=== PATIENT | male | born 1955 | race Caucasian/White ===

== ENCOUNTER → 2017-12-30 09:17 | Outpatient (CLI) | payer OTHER, SELFPAY ==
[2017-12-30 10:36] LABS: Add Manual Diff / Slide Review NO; Basophils Percent Auto 0.5 % (0-2); Eosinophils Percent Auto 2.2 % (2-4); Hematocrit 42.9 % (41-53); Hemoglobin 14.6 g/dL (13.5-17.5); Lymphocytes Percent Auto 23.8 % (25-40); Mean Corpuscular HGB Conc 34.1 % (30-36); Mean Corpuscular Hemoglobin 28.8 PG (26-34); Mean Corpuscular Volume 84.4 fL (80-100); Monocytes Percent Auto 6.8 % (3-14); Neutrophils Absolute Auto 5700 /uL (3000-5900); Neutrophils Percent Auto 66.7 % (50-75); Platelet Count 230 X10^3/uL (150-400); Red Blood Cell Count 5.08 X10^6/uL (4.5-5.9); Red Cell Distribution Width 15.3 % (11.6-14.8); White Blood Cell Count 8.6 X10^3/uL (4.5-11.0)
[2017-12-30 11:32] LABS: Creatinine Urine Random 90.5 mg/dL
[2017-12-30 11:41] LABS: Alanine Aminotransferase 29 IU/L (21-72); Albumin 3.9 g/dL (3.5-5.0); Albumin Globulin Ratio 1.4 (1.0-2.8); Alkaline Phosphatase 78 U/L (38-126); Aspartate Aminotransferase 20 IU/L (17-59); Bilirubin Total 0.4 mg/dL (0.2-1.3); Blood Urea Nitrogen 14 mg/dL (9-20); Calcium 9.2 mg/dL (8.4-10.2); Carbon Dioxide 31 mmol/L (22-32); Chloride 102 mmol/L (98-107); Estimated Glomerular Filt Rate > 60.0 mL/min (>60); Globulin 2.7 g/dL (1.7-4.1); Glucose 140 mg/dL (80-110); HEMOLYSIS < 15 (0-50); Potassium 4.1 mmol/L (3.4-5.1); Sodium 140 mmol/L (137-145); Total Protein 6.6 g/dL (6.3-8.2)
[2017-12-30 11:46] LABS: Hemoglobin A1C% w Est Avg Glu 7.7 % (4.0-6.0)
[2017-12-30 11:52] LABS: Free T4, Direct Thyroxine 1.56 ng/dL (0.78-2.19)
[2017-12-30 11:54] LABS: Microalbumi Creatinin Ratio Ur 296.1 ug/mg CR (<30); Microalbumin Urine Random 26.8 mg/dL (0-1.6)
[2017-12-30 12:06] LABS: Thyroid Stimulating Hormone 0.09 uIU/mL (0.47-4.68)
== END ==
PROVIDERS: PCP Family Medicine; Visit Provider Family Medicine
DX: E03.9 Hypothyroidism, unspecified (principal); E11.69 Type 2 diabetes mellitus with other specified complication; E66.9 Obesity, unspecified; I10 Essential (primary) hypertension
CPT/HCPCS: 36415; 80053; 82043; 82570; 83036; 84439; 84443; 85025

== ENCOUNTER → 2018-01-20 15:14 | Outpatient (CLI) | payer OTHER, SELFPAY ==
[2018-01-20 15:54] LABS: Cholesterol 143 mg/dL (140-199); HDL Cholesterol 36 mg/dL (40-60); Triglycerides 416 mg/dL (35-150)
== END ==
PROVIDERS: PCP Family Medicine; Visit Provider Internal Medicine
DX: E11.69 Type 2 diabetes mellitus with other specified complication (principal); E66.9 Obesity, unspecified; I10 Essential (primary) hypertension
CPT/HCPCS: 36415; 80061

== ENCOUNTER → 2018-02-23 09:50 | Outpatient (CLI) | payer OTHER, SELFPAY ==
[2018-02-23 11:43] LABS: BUN Creatinine Ratio 17.5 (6-22); Blood Urea Nitrogen 14 mg/dL (9-20); Calcium 9.3 mg/dL (8.4-10.2); Carbon Dioxide 29 mmol/L (22-32); Chloride 101 mmol/L (98-107); Cholesterol 157 mg/dL (140-199); Estimated Glomerular Filt Rate > 60.0 mL/min (>60); Glucose 154 mg/dL (80-110); HDL Cholesterol 37 mg/dL (40-60); HEMOLYSIS < 15 (0-50); LDL Cholesterol Calculated 63 mg/dL (<100); Potassium 4.6 mmol/L (3.4-5.1); Sodium 142 mmol/L (137-145); Triglycerides 286 mg/dL (35-150)
== END ==
PROVIDERS: PCP Internal Medicine; Visit Provider Internal Medicine
DX: I10 Essential (primary) hypertension (principal); E66.01 Morbid (severe) obesity due to excess calories; E11.69 Type 2 diabetes mellitus with other specified complication; E66.9 Obesity, unspecified; E78.1 Pure hyperglyceridemia
CPT/HCPCS: 36415; 80048; 80061

== ENCOUNTER 2018-03-11 12:00 | Emergency (ER) | payer OTHER, SELFPAY ==
[2018-03-11 12:05] VITALS: BP 167/60; PULSE 76; RESP 20; TEMP 36.8; O2SAT 100; BMI 48.8
--- NOTE | 2018-03-11 12:58 | ED.BACK ---
HPI - Back Pain/Injury <APARNA Dennis - Last Filed: 03/11/18 22:05> General Chief Complaint: Back Pain/Injury Stated Complaint: Back Pain Time Seen by Provider: 03/11/18 13:07 Source: patient and EMS Mode of arrival: EMS Limitations: no limitations History of Present Illness HPI Narrative: 62-year-old male with history of type 2 diabetes and is a former smoker here for complaint of having lower back pain over the past several days. He was seen by his primary care provider 2 days ago and was placed on Tylenol and cyclobenzaprine. He states that the Tylenol in the cyclobenzaprine is not helping. He reports worsening pain in today with movement. He is able to ambulate although it is painful. He denies any loss of bladder or bowel control. He denies any trauma to the lower back. He states that the pain started when he was bending over to work on a toilet. No other concerns or complaints. MD Complaint: back pain Related Data Home Medications Medication Instructions Recorded Confirmed aspirin 81 mg PO QDAY #0 06/28/12 03/09/18 vit C,D-Qx-uofmr-lutein-zeaxan 1 cap PO QDAY #0 12/10/12 03/09/18 [Ocuvite Lutein and Zeaxanthin] lisinopril 60 mg PO Q DAY 03/11/18 Previous Rx's Medication Instructions Recorded levothyroxine 150 mcg PO QAM #90 tab 06/23/17 Syringes: 1cc Insulin Syringes 0 syr #100 ea 08/26/17 with [place] amlodipine 10 mg PO QDAY #90 tab 09/10/17 blood sugar diagnostic strips #100 each 11/17/17 carvedilol 25 mg tablet 25 mg PO BID #180 tab 01/12/18 chlorthalidone 25 mg tablet 25 mg PO DAILY #90 tab 01/12/18 levothyroxine 75 mcg tablet 75 mcg PO DAILY #60 tab 01/12/18 metformin 500 mg tablet 1,000 mg PO BIDCC #360 tab 01/12/18 insulin U-100 regular human 100 0 unit SUBCUT BID #50 ml 01/26/18 unit/mL injection solution insulin glargine (U-100) 100 0 unit SUBCUT BID #60 ml 01/26/18 unit/mL subcutaneous solution rosuvastatin [Crestor] 40 mg PO QDAY #30 tab 01/26/18 spironolactone 50 mg tablet 50 mg PO DAILY #90 tab 02/23/18 cyclobenzaprine 10 mg tablet 10 mg PO TID #30 tab 03/09/18 hydrocodone-acetaminophen 1 tab PO Q4-6H PRN #10 tab 03/11/18 prednisone 40 mg PO DAILY #8 tab 03/11/18 Allergies Allergy/AdvReac Type Severity Reaction Status Date / Time No Known Drug Allergies Allergy Verified 03/09/18 16:00 Review of Systems <APARNA Dennis - Last Filed: 03/11/18 22:05> Constitutional Denies chills, Denies fever(s), Denies lethargy and Denies weakness Eyes Denies change in vision, Denies eye discharge, Denies irritation and Denies loss of vision ENT Ears, Nose, Mouth, and Throat: Denies change in voice, Denies neck pain and Denies sore throat Cardiovascular Denies chest pain, Denies irregular heart rhythm, Denies lightheadedness, Denies palpitations and Denies orthopnea Gastrointestinal Gastrointestinal: Denies abdominal pain, Denies change in bowel habits, Denies diarrhea, Denies nausea and Denies vomiting Genitourinary Denies hematuria, Denies flank pain, Denies urinary incontinence and Denies urinary urgency Musculoskeletal Denies neck pain Comments: Lower back pain Integumentary/Breasts Denies pruritus, Denies erythema, Denies rash and Denies wounds Neurologic Denies confusion, Denies loss of vision and Denies weakness Psychiatric Denies anxiety, Denies confusion, Denies depression, Denies homicidal ideation and Denies suicidal ideation Endocrine Denies palpitations Exam <APARNA Dennis - Last Filed: 03/11/18 22:05> Initial Vital Signs Initial Vital Signs: Vital Signs Temperature 98.2 F 03/11/18 12:05 Pulse Rate 76 03/11/18 12:05 Respiratory Rate 20 03/11/18 12:05 Blood Pressure 167/60 H 03/11/18 12:05 Pulse Oximetry 100 03/11/18 12:05 Const General: cooperative and well developed Nutritional Appearance: well nourished Orientation: alert, awake, oriented x3 and not confused HENMT Mouth: oral mucosae normal and moist mucous membranes Eyes Conjunctivae: conjunctivae normal Sclera: sclerae normal Pupils: PERRL EOM: EOM intact bilaterally Resp Effort & Inspection: normal respiratory effort, able to speak in complete sentences, no respiratory distress and no use of accessory muscles Auscultation: clear to auscultation bilaterally, no rales, no rhonchi and no wheezes Cardio Rate: regular rate Rhythm: regular rhythm Heart Sounds: no click, no gallops, no murmurs and no rubs Back/Spine/Pelvis Other: Tenderness on palpation to the right lumbar paraspinals with muscle spasm. No deformities. Distal sensation is intact. Distal range of motion is intact. Skin General: no rashes or lesions noted, No jaundice and No petechiae Neuro General: alert, oriented x3, gait normal and no focal motor deficits Speech: speech normal <Ivy Watt DO - Last Filed: 03/14/18 08:10> Initial Vital Signs Initial Vital Signs: Vital Signs Temperature 98.2 F 03/11/18 12:05 Pulse Rate 76 03/11/18 12:05 Respiratory Rate 20 03/11/18 12:05 Blood Pressure 167/60 H 03/11/18 12:05 Pulse Oximetry 100 03/11/18 12:05 Course <APARNA Dennis - Last Filed: 03/11/18 22:05> Orders Ordered: Discontinued Medications Hydrocodone Bitart/Acetaminophen ([place] 5/325) 2 tab PO NOW ONE Stop: 03/11/18 13:07 Last Admin: 03/11/18 13:32 Dose: 2 tab Diazepam (Valium) 5 mg PO NOW ONE Stop: 03/11/18 13:07 Last Admin: 03/11/18 13:33 Dose: 5 mg Vital Signs - 8 hr 03/11/18 14:10 Pulse Rate 65 Respiratory Rate 16 Blood Pressure 138/50 L Pulse Oximetry 96 <Ivy Watt DO - Last Filed: 03/14/18 08:10> Orders Ordered: Discontinued Medications Hydrocodone Bitart/Acetaminophen ([place] 5/325) 2 tab PO NOW ONE Stop: 03/11/18 13:07 Last Admin: 03/11/18 13:32 Dose: 2 tab Diazepam (Valium) 5 mg PO NOW ONE Stop: 03/11/18 13:07 Last Admin: 03/11/18 13:33 Dose: 5 mg Vital Signs - 8 hr 03/11/18 14:10 Pulse Rate 65 Respiratory Rate 16 Blood Pressure 138/50 L Pulse Oximetry 96 [facility] - Back Pain/Injury <Deondre RolandAPARNA tillman - Last Filed: 03/11/18 22:05> [facility] Narrative Medical decision making narrative: Signs and symptoms presents as lumbar strain into the right paraspinals. Cyclobenzaprine and Tylenol is not helping his symptoms. Small amount of [place] is prescribed for pain. Short course of prednisone is given for anti-inflammatory effects. Patient instructed not to use the [place] and conjunction with the cyclobenzaprine. Follow up with primary care provider next couple days for re-evaluation. For any worsening symptoms return to the emergency room. Gentle range of motion at to painful areas to keep muscles loose. Discharge Plan Departure Patient Disposition: Home Clinical Impression: Low back pain Discharge Date/Time: 03/11/18 14:00 Interventions: ED Discharge Assessment Last Done: 03/11/18 14:10 Instructions: DI for Low Back Pain Activity Restrictions/Additional Instructions: Sinus symptoms presents as a lower back strain with muscle spasm. Use [id number] Tylenol or Motrin as needed for the discomfort continued use cyclobenzaprine for the muscle spasm. Small amount of [place] is prescribed for breakthrough pain use as directed do not use in conjunction with the muscle relaxer. Short course of prednisone as prescribed for inflammation use as directed. Follow up with her primary care provider in the next couple days for re-evaluation. Gentle range of motion to painful areas to keep muscles loose. For any worsening symptoms return to the emergency room. Prescriptions: New hydrocodone-acetaminophen 5-325 mg tablet 1 tab PO Q4-6H PRN (Reason: pain) Qty: 10 RF: 0 prednisone 20 mg tablet 40 mg PO DAILY Qty: 8 RF: 0 No Action aspirin 81 MG tablet,delayed release (DR/EC) 81 mg PO QDAY Qty: 0 RF: 0 vit C,D-Hx-iuxgc-lutein-zeaxan [Ocuvite Lutein and Zeaxanthin] 1 EACH capsule 1 cap PO QDAY Qty: 0 RF: 0 levothyroxine 150 MCG tablet 150 mcg PO QAM Qty: 90 RF: 3 Syringes: 1cc Insulin Syringes with [place] Qty: 100 RF: 11 amlodipine 10 MG tablet 10 mg PO QDAY Qty: 90 RF: 3 blood sugar diagnostic strip .ROUTE .MEDSUPPLY Qty: 100 RF: 11 spironolactone 50 mg tablet 50 mg PO DAILY Qty: 90 RF: 1 cyclobenzaprine 10 mg tablet 10 mg PO TID Qty: 30 RF: 0 chlorthalidone 25 mg tablet 25 mg PO DAILY Qty: 90 RF: 0 carvedilol 25 mg tablet 25 mg PO BID Qty: 180 RF: 0 levothyroxine 75 mcg tablet 75 mcg PO DAILY Qty: 60 RF: 0 metformin [Glucophage] 500 mg tablet 1,000 mg PO BIDCC Qty: 360 RF: 3 insulin glargine [Lantus U-100 Insulin] 100 unit/mL solution SUBCUT BID Qty: 60 RF: 11 insulin regular human [Humulin R Regular U-100 Insuln] 100 unit/mL solution SUBCUT BID Qty: 50 RF: 12 rosuvastatin [Crestor] 40 mg tablet 40 mg PO QDAY Qty: 30 RF: 11 lisinopril 40 MG tablet 60 mg PO Q DAY RF: 0 Referrals: Hamzah Jenkins MD [Primary Care Provider] - <Ivy aWtt DO - Last Filed: 03/14/18 08:10> Cosign ED Attending Cosignature Attestation: I was immediately available in the department for consultation. This documentation has been reviewed and I agree with assessment and plan. Supervised by Ivy Watt DO
--- NOTE | 2018-03-11 13:13 | ED_ITS ---
HPI - Back Pain/Injury <APARNA Dennis - Last Filed: 03/11/18 22:05> General Chief Complaint: Back Pain/Injury Stated Complaint: Back Pain Time Seen by Provider: 03/11/18 13:07 Source: patient and EMS Mode of arrival: EMS Limitations: no limitations History of Present Illness HPI Narrative: 62-year-old male with history of type 2 diabetes and is a former smoker here for complaint of having lower back pain over the past several days. He was seen by his primary care provider 2 days ago and was placed on Tylenol and cyclobenzaprine. He states that the Tylenol in the cyclobenzaprine is not helping. He reports worsening pain in today with movement. He is able to ambulate although it is painful. He denies any loss of bladder or bowel control. He denies any trauma to the lower back. He states that the pain started when he was bending over to work on a toilet. No other concerns or complaints. MD Complaint: back pain Related Data Home Medications Medication Instructions Recorded Confirmed aspirin 81 mg PO QDAY #0 06/28/12 03/09/18 vit C,V-Lc-klvgo-lutein-zeaxan 1 cap PO QDAY #0 12/10/12 03/09/18 [Ocuvite Lutein and Zeaxanthin] lisinopril 60 mg PO Q DAY 03/11/18 Previous Rx's Medication Instructions Recorded levothyroxine 150 mcg PO QAM #90 tab 06/23/17 Syringes: 1cc Insulin Syringes 0 syr #100 ea 08/26/17 with [place] amlodipine 10 mg PO QDAY #90 tab 09/10/17 blood sugar diagnostic strips #100 each 11/17/17 carvedilol 25 mg tablet 25 mg PO BID #180 tab 01/12/18 chlorthalidone 25 mg tablet 25 mg PO DAILY #90 tab 01/12/18 levothyroxine 75 mcg tablet 75 mcg PO DAILY #60 tab 01/12/18 metformin 500 mg tablet 1,000 mg PO BIDCC #360 tab 01/12/18 insulin U-100 regular human 100 0 unit SUBCUT BID #50 ml 01/26/18 unit/mL injection solution insulin glargine (U-100) 100 0 unit SUBCUT BID #60 ml 01/26/18 unit/mL subcutaneous solution rosuvastatin [Crestor] 40 mg PO QDAY #30 tab 01/26/18 spironolactone 50 mg tablet 50 mg PO DAILY #90 tab 02/23/18 cyclobenzaprine 10 mg tablet 10 mg PO TID #30 tab 03/09/18 hydrocodone-acetaminophen 1 tab PO Q4-6H PRN #10 tab 03/11/18 prednisone 40 mg PO DAILY #8 tab 03/11/18 Allergies Allergy/AdvReac Type Severity Reaction Status Date / Time No Known Drug Allergies Allergy Verified 03/09/18 16:00 Review of Systems <APARNA Dennis - Last Filed: 03/11/18 22:05> Constitutional Denies chills, Denies fever(s), Denies lethargy and Denies weakness Eyes Denies change in vision, Denies eye discharge, Denies irritation and Denies loss of vision ENT Ears, Nose, Mouth, and Throat: Denies change in voice, Denies neck pain and Denies sore throat Cardiovascular Denies chest pain, Denies irregular heart rhythm, Denies lightheadedness, Denies palpitations and Denies orthopnea Gastrointestinal Gastrointestinal: Denies abdominal pain, Denies change in bowel habits, Denies diarrhea, Denies nausea and Denies vomiting Genitourinary Denies hematuria, Denies flank pain, Denies urinary incontinence and Denies urinary urgency Musculoskeletal Denies neck pain Comments: Lower back pain Integumentary/Breasts Denies pruritus, Denies erythema, Denies rash and Denies wounds Neurologic Denies confusion, Denies loss of vision and Denies weakness Psychiatric Denies anxiety, Denies confusion, Denies depression, Denies homicidal ideation and Denies suicidal ideation Endocrine Denies palpitations Exam <APARNA Dennis - Last Filed: 03/11/18 22:05> Initial Vital Signs Initial Vital Signs: Vital Signs Temperature 98.2 F 03/11/18 12:05 Pulse Rate 76 03/11/18 12:05 Respiratory Rate 20 03/11/18 12:05 Blood Pressure 167/60 H 03/11/18 12:05 Pulse Oximetry 100 03/11/18 12:05 Const General: cooperative and well developed Nutritional Appearance: well nourished Orientation: alert, awake, oriented x3 and not confused HENMT Mouth: oral mucosae normal and moist mucous membranes Eyes Conjunctivae: conjunctivae normal Sclera: sclerae normal Pupils: PERRL EOM: EOM intact bilaterally Resp Effort & Inspection: normal respiratory effort, able to speak in complete sentences, no respiratory distress and no use of accessory muscles Auscultation: clear to auscultation bilaterally, no rales, no rhonchi and no wheezes Cardio Rate: regular rate Rhythm: regular rhythm Heart Sounds: no click, no gallops, no murmurs and no rubs Back/Spine/Pelvis Other: Tenderness on palpation to the right lumbar paraspinals with muscle spasm. No deformities. Distal sensation is intact. Distal range of motion is intact. Skin General: no rashes or lesions noted, No jaundice and No petechiae Neuro General: alert, oriented x3, gait normal and no focal motor deficits Speech: speech normal <Ivy Watt DO - Last Filed: 03/14/18 08:10> Initial Vital Signs Initial Vital Signs: Vital Signs Temperature 98.2 F 03/11/18 12:05 Pulse Rate 76 03/11/18 12:05 Respiratory Rate 20 03/11/18 12:05 Blood Pressure 167/60 H 03/11/18 12:05 Pulse Oximetry 100 03/11/18 12:05 Course <APARNA Dennis - Last Filed: 03/11/18 22:05> Orders Ordered: Discontinued Medications Hydrocodone Bitart/Acetaminophen ([place] 5/325) 2 tab PO NOW ONE Stop: 03/11/18 13:07 Last Admin: 03/11/18 13:32 Dose: 2 tab Diazepam (Valium) 5 mg PO NOW ONE Stop: 03/11/18 13:07 Last Admin: 03/11/18 13:33 Dose: 5 mg Vital Signs - 8 hr 03/11/18 14:10 Pulse Rate 65 Respiratory Rate 16 Blood Pressure 138/50 L Pulse Oximetry 96 <Ivy Watt DO - Last Filed: 03/14/18 08:10> Orders Ordered: Discontinued Medications Hydrocodone Bitart/Acetaminophen ([place] 5/325) 2 tab PO NOW ONE Stop: 03/11/18 13:07 Last Admin: 03/11/18 13:32 Dose: 2 tab Diazepam (Valium) 5 mg PO NOW ONE Stop: 03/11/18 13:07 Last Admin: 03/11/18 13:33 Dose: 5 mg Vital Signs - 8 hr 03/11/18 14:10 Pulse Rate 65 Respiratory Rate 16 Blood Pressure 138/50 L Pulse Oximetry 96 [facility] - Back Pain/Injury <Deondre RolandAPARNA tillman - Last Filed: 03/11/18 22:05> [facility] Narrative Medical decision making narrative: Signs and symptoms presents as lumbar strain into the right paraspinals. Cyclobenzaprine and Tylenol is not helping his symptoms. Small amount of [place] is prescribed for pain. Short course of prednisone is given for anti-inflammatory effects. Patient instructed not to use the [place] and conjunction with the cyclobenzaprine. Follow up with primary care provider next couple days for re-evaluation. For any worsening symptoms return to the emergency room. Gentle range of motion at to painful areas to keep muscles loose. Discharge Plan Departure Patient Disposition: Home Clinical Impression: Low back pain Discharge Date/Time: 03/11/18 14:00 Interventions: ED Discharge Assessment Last Done: 03/11/18 14:10 Instructions: DI for Low Back Pain Activity Restrictions/Additional Instructions: Sinus symptoms presents as a lower back strain with muscle spasm. Use over-the- counter Tylenol or Motrin as needed for the discomfort continued use cyclobenzaprine for the muscle spasm. Small amount of [place] is prescribed for breakthrough pain use as directed do not use in conjunction with the muscle relaxer. Short course of prednisone as prescribed for inflammation use as directed. Follow up with her primary care provider in the next couple days for re-evaluation. Gentle range of motion to painful areas to keep muscles loose. For any worsening symptoms return to the emergency room. Prescriptions: New hydrocodone-acetaminophen 5-325 mg tablet 1 tab PO Q4-6H PRN (Reason: pain) Qty: 10 RF: 0 prednisone 20 mg tablet 40 mg PO DAILY Qty: 8 RF: 0 No Action aspirin 81 MG tablet,delayed release (DR/EC) 81 mg PO QDAY Qty: 0 RF: 0 vit C,J-Nc-szxpr-lutein-zeaxan [Ocuvite Lutein and Zeaxanthin] 1 EACH capsule 1 cap PO QDAY Qty: 0 RF: 0 levothyroxine 150 MCG tablet 150 mcg PO QAM Qty: 90 RF: 3 Syringes: 1cc Insulin Syringes with [place] Qty: 100 RF: 11 amlodipine 10 MG tablet 10 mg PO QDAY Qty: 90 RF: 3 blood sugar diagnostic strip .ROUTE .MEDSUPPLY Qty: 100 RF: 11 spironolactone 50 mg tablet 50 mg PO DAILY Qty: 90 RF: 1 cyclobenzaprine 10 mg tablet 10 mg PO TID Qty: 30 RF: 0 chlorthalidone 25 mg tablet 25 mg PO DAILY Qty: 90 RF: 0 carvedilol 25 mg tablet 25 mg PO BID Qty: 180 RF: 0 levothyroxine 75 mcg tablet 75 mcg PO DAILY Qty: 60 RF: 0 metformin [Glucophage] 500 mg tablet 1,000 mg PO BIDCC Qty: 360 RF: 3 insulin glargine [Lantus U-100 Insulin] 100 unit/mL solution SUBCUT BID Qty: 60 RF: 11 insulin regular human [Humulin R Regular U-100 Insuln] 100 unit/mL solution SUBCUT BID Qty: 50 RF: 12 rosuvastatin [Crestor] 40 mg tablet 40 mg PO QDAY Qty: 30 RF: 11 lisinopril 40 MG tablet 60 mg PO Q DAY RF: 0 Referrals: Hamzah Jenkins MD [Primary Care Provider] - <Ivy Watt DO - Last Filed: 03/14/18 08:10> Cosign ED Attending Cosignature Attestation: I was immediately available in the department for consultation. This documentation has been reviewed and I agree with assessment and plan. Supervised by Ivy Watt DO
[2018-03-11] MEDS: HYDROCODONE/ACET 5/325 TABLET 2 TAB PO (13:32)
[2018-03-11] MEDS: diazePAM 5 MG TABLET PO (13:33)
[2018-03-11 14:10] VITALS: BP 138/50; PULSE 65; RESP 16; O2SAT 96
== END 2018-03-11 14:00 | disposition home or self-care (01) ==
PROVIDERS: Emergency Provider Nurse Practitioner Family; PCP Internal Medicine
DX: M54.5 Low back pain (principal)
CPT/HCPCS: 99283

== ENCOUNTER → 2018-03-30 09:15 | Outpatient (CLI) | payer OTHER, SELFPAY ==
[2018-03-30 11:31] LABS: Thyroid Stimulating Hormone 0.74 uIU/mL (0.47-4.68)
[2018-03-30 19:51] LABS: Free T3, Triiodothyronine Free 2.83 pg/mL (2.77-5.27); Free T4, Direct Thyroxine 1.32 ng/dL (0.78-2.19)
== END ==
PROVIDERS: Visit Provider Family Medicine
DX: E03.9 Hypothyroidism, unspecified (principal)
CPT/HCPCS: 36415; 84439; 84443; 84481

== ENCOUNTER → 2018-06-03 08:20 | Outpatient (CLI) | payer OTHER, SELFPAY ==
[2018-06-03 09:02] LABS: Blood Urea Nitrogen 23 mg/dL (9-20); Calcium 9.8 mg/dL (8.4-10.2); Carbon Dioxide 28 mmol/L (22-32); Chloride 101 mmol/L (98-107); Estimated Glomerular Filt Rate > 60.0 mL/min (>60); Glucose 135 mg/dL (80-110); HEMOLYSIS < 15 (0-50); Potassium 4.7 mmol/L (3.4-5.1); Sodium 144 mmol/L (137-145)
[2018-06-03 09:03] LABS: Hemoglobin A1C% w Est Avg Glu 6.9 % (4.0-6.0)
[2018-06-03 09:29] LABS: Prostate Specific Antigen Scrn 1.65 ng/mL (0.1-4.0)
== END ==
PROVIDERS: PCP Internal Medicine; Visit Provider Internal Medicine
DX: E11.65 Type 2 diabetes mellitus with hyperglycemia (principal); Z12.5 Encounter for screening for malignant neoplasm of prostate
CPT/HCPCS: 36415; 80048; 83036; G0103

== ENCOUNTER → 2018-08-05 16:04 | Outpatient (CLI) | payer OTHER, SELFPAY ==
--- NOTE | 2018-08-05 16:07 | DI.RAD.S_ITS ---
PROCEDURE: XR PELVIS 1-2V INDICATIONS: back pain/lumbar radiculopathy TECHNIQUE: 1 view(s) of the pelvis acquired. COMPARISON: None. FINDINGS: Bones: No fractures or dislocations. No suspicious bony lesions. Mild symmetric hip and sacroiliac joint degeneration bilaterally. Soft tissues: Visualized bowel gas pattern is normal. No suspicious soft tissue calcifications. IMPRESSION: No fractures. Mild degenerative joint disease. Dictated by: Ernesto Ramos M.D. on 08/05/2018 at 17:27 Approved by: Ernesto Ramos M.D. on 08/05/2018 at 17:29
--- NOTE | 2018-08-05 16:07 | DI.RAD.S_ITS ---
PROCEDURE: XR LUMBAR SPINE 2-3V INDICATIONS: back pain/lumbar radiculopathy TECHNIQUE: 3 views of the lumbar spine were acquired. COMPARISON: [facility], CT, ANGIOGRAPHY CHEST, 05/15/2014, 11:51. [facility], CT, ABDOMEN/PELVIS WITH CONTRAST, 12/20/2009, 9:12. [facility], RG, XR L-SPINE 4-6V, 03/23/2002, 7:04. [facility], RG, XR L-SPINE 4-6V, 01/21/2000, 7:04. FINDINGS: Motion artifacts on lateral view. Bones: 5 tpt-ady-sfxtuhg vertebrae are present. There is normal bony alignment. No vertebral body compression fractures. No suspicious bony lesions. There is mild degenerative disc disease in lumbar spine. Moderate facet arthropathy at L5-S1. Soft tissues: Overlying bowel gas pattern is normal. No suspicious soft tissue calcifications. IMPRESSION: 1. Mild degenerative disc disease and moderate facet facet arthropathy. Dictated by: Ernesto Ramos M.D. on 08/05/2018 at 17:33 Approved by: Ernesto Ramos M.D. on 08/05/2018 at 17:36
== END ==
PROVIDERS: PCP Internal Medicine; Visit Provider Internal Medicine
DX: M54.9 Dorsalgia, unspecified (principal); M16.0 Bilateral primary osteoarthritis of hip; M47.28 Other spondylosis with radiculopathy, sacral and sacrococcygeal region; M51.16 Intervertebral disc disorders with radiculopathy, lumbar region; M47.27 Other spondylosis with radiculopathy, lumbosacral region
CPT/HCPCS: 72100; 72170

== ENCOUNTER → 2019-03-25 13:38 | Outpatient (CLI) | payer OTHER, SELFPAY ==
[2019-03-25 15:17] LABS: Alanine Aminotransferase 21 IU/L (21-72); Albumin 4.1 g/dL (3.5-5.0); Albumin Globulin Ratio 1.5 (1.0-2.8); Alkaline Phosphatase 63 U/L (38-126); Aspartate Aminotransferase 20 IU/L (17-59); BUN Creatinine Ratio 17.8 (6-22); Bilirubin Total 0.3 mg/dL (0.2-1.3); Blood Urea Nitrogen 16 mg/dL (9-20); Calcium 9.5 mg/dL (8.4-10.2); Carbon Dioxide 27 mmol/L (22-32); Chloride 101 mmol/L (98-107); Estimated Glomerular Filt Rate > 60.0 mL/min (>60); Globulin 2.7 g/dL (1.7-4.1); Glucose 301 mg/dL (80-110); HEMOLYSIS < 15 (0-50); Potassium 4.9 mmol/L (3.4-5.1); Sodium 139 mmol/L (137-145); Total Protein 6.8 g/dL (6.3-8.2)
[2019-03-25 15:18] LABS: Hemoglobin A1C% w Est Avg Glu 6.7 % (4.0-6.0)
[2019-03-25 15:33] LABS: Free T4, Direct Thyroxine 1.38 ng/dL (0.78-2.19)
[2019-03-25 15:47] LABS: Thyroid Stimulating Hormone 0.37 uIU/mL (0.47-4.68)
== END ==
PROVIDERS: PCP Internal Medicine; Visit Provider Internal Medicine
DX: E03.9 Hypothyroidism, unspecified (principal); E11.21 Type 2 diabetes mellitus with diabetic nephropathy; E11.65 Type 2 diabetes mellitus with hyperglycemia; G25.0 Essential tremor
CPT/HCPCS: 36415; 80053; 83036; 84439; 84443

== ENCOUNTER → 2019-08-08 10:53 | Outpatient (CLI) | payer MEDICARE, SELFPAY ==
[2019-08-08 12:05] LABS: Hemoglobin A1C% w Est Avg Glu 7.7 % (4.0-6.0)
[2019-08-08 12:18] LABS: BUN Creatinine Ratio 17.5 (6-22); Blood Urea Nitrogen 14 mg/dL (9-20); Calcium 9.2 mg/dL (8.4-10.2); Carbon Dioxide 29 mmol/L (22-32); Chloride 100 mmol/L (98-107); Estimated Glomerular Filt Rate > 60.0 mL/min (>60); Glucose 139 mg/dL (80-110); HEMOLYSIS 34 (0-50); Potassium 4.6 mmol/L (3.4-5.1); Sodium 138 mmol/L (137-145)
== END ==
PROVIDERS: PCP Internal Medicine; Referring Provider Internal Medicine; Visit Provider Internal Medicine
DX: E11.21 Type 2 diabetes mellitus with diabetic nephropathy (principal); E11.65 Type 2 diabetes mellitus with hyperglycemia
CPT/HCPCS: 36415; 80048; 83036

== ENCOUNTER → 2020-01-06 13:54 | Outpatient (CLI) | payer MEDICARE, OTHER, SELFPAY ==
[2020-01-06 15:08] LABS: Hemoglobin A1C% w Est Avg Glu 7.3 % (4.0-6.0)
[2020-01-06 15:18] LABS: BUN Creatinine Ratio 23.1 (6-22); Blood Urea Nitrogen 24 mg/dL (9-20); Calcium 9.5 mg/dL (8.4-10.2); Carbon Dioxide 28 mmol/L (22-32); Chloride 103 mmol/L (98-107); Estimated Glomerular Filt Rate > 60.0 mL/min (>60); Glucose 72 mg/dL (80-110); HEMOLYSIS < 15 (0-50); Potassium 4.7 mmol/L (3.4-5.1); Sodium 139 mmol/L (137-145)
== END ==
PROVIDERS: PCP Internal Medicine; Referring Provider Internal Medicine; Visit Provider Internal Medicine
DX: E11.21 Type 2 diabetes mellitus with diabetic nephropathy (principal); E11.65 Type 2 diabetes mellitus with hyperglycemia; E11.69 Type 2 diabetes mellitus with other specified complication; E66.9 Obesity, unspecified
CPT/HCPCS: 36415; 80048; 83036

== ENCOUNTER → 2020-04-17 11:56 | Outpatient (CLI) | payer MEDICARE, OTHER, SELFPAY ==
[2020-04-17 13:19] LABS: Hemoglobin A1C% w Est Avg Glu 7.1 % (4.0-6.0)
[2020-04-17 13:20] LABS: Alanine Aminotransferase 15 IU/L (<50); Albumin 4.1 g/dL (3.5-5.0); Albumin Globulin Ratio 1.5 (1.0-2.8); Alkaline Phosphatase 72 U/L (38-126); Aspartate Aminotransferase 16 IU/L (17-59); BUN Creatinine Ratio 25.9 (6-22); Bilirubin Total 0.3 mg/dL (0.2-1.3); Blood Urea Nitrogen 28 mg/dL (9-20); Calcium 9.2 mg/dL (8.4-10.2); Carbon Dioxide 30 mmol/L (22-32); Chloride 98 mmol/L (98-107); Estimated Glomerular Filt Rate > 60.0 mL/min (>60); Globulin 2.8 g/dL (1.7-4.1); Glucose 204 mg/dL (80-110); HEMOLYSIS < 15 (0-50); Potassium 4.9 mmol/L (3.4-5.1); Sodium 135 mmol/L (137-145); Total Protein 6.9 g/dL (6.3-8.2)
[2020-04-17 13:40] LABS: Free T4, Direct Thyroxine 1.51 ng/dL (0.78-2.19)
[2020-04-17 13:54] LABS: Thyroid Stimulating Hormone 0.579 uIU/mL (0.47-4.68)
== END ==
PROVIDERS: PCP Internal Medicine; Referring Provider Internal Medicine; Visit Provider Internal Medicine
DX: G25.0 Essential tremor (principal); E11.69 Type 2 diabetes mellitus with other specified complication; E66.9 Obesity, unspecified; I10 Essential (primary) hypertension; E03.9 Hypothyroidism, unspecified
CPT/HCPCS: 36415; 80053; 83036; 84439; 84443

== ENCOUNTER → 2020-09-05 08:37 | Outpatient (CLI) | payer MEDICARE, OTHER, SELFPAY ==
[2020-09-05] MEDS: COVID-19 VACC #1, MRNA(MOD) 100 MCG/0.5 ML VIAL IM (08:47)
== END ==
PROVIDERS: PCP Internal Medicine; Visit Provider Internal Medicine
DX: Z23 Encounter for immunization (principal)
CPT/HCPCS: 0011A; 91301

== ENCOUNTER → 2020-10-03 08:28 | Outpatient (CLI) | payer MEDICARE, OTHER, SELFPAY ==
[2020-10-03] MEDS: COVID-19 VACC #2, MRNA(MOD) 100 MCG/0.5 ML VIAL IM (08:35)
== END ==
PROVIDERS: PCP Internal Medicine; Visit Provider Internal Medicine
DX: Z23 Encounter for immunization (principal)
CPT/HCPCS: 0012A; 91301

== ENCOUNTER → 2021-01-22 08:37 | Outpatient (CLI) | payer MEDICARE, OTHER, SELFPAY ==
[2021-01-22 09:31] LABS: Hemoglobin A1C% w Est Avg Glu 7.1 % (4.0-6.0)
[2021-01-22 09:57] LABS: Alanine Aminotransferase 16 IU/L (<50); Albumin 3.7 g/dL (3.5-5.0); Albumin Globulin Ratio 1.5 (1.0-2.8); Alkaline Phosphatase 73 U/L (38-126); Aspartate Aminotransferase 20 IU/L (17-59); BUN Creatinine Ratio 30.4 (6-22); Bilirubin Total 0.3 mg/dL (0.2-1.3); Blood Urea Nitrogen 28 mg/dL (9-20); Calcium 9.8 mg/dL (8.4-10.2); Carbon Dioxide 26 mmol/L (22-32); Chloride 104 mmol/L (98-107); Cholesterol 149 mg/dL (140-199); Estimated Glomerular Filt Rate > 60.0 mL/min (>60); Globulin 2.5 g/dL (1.7-4.1); Glucose 239 mg/dL (80-110); HDL Cholesterol 34 mg/dL (40-60); HEMOLYSIS 27 (0-50); LDL Cholesterol Calculated 60 mg/dL (<100); Sodium 136 mmol/L (137-145); Total Protein 6.2 g/dL (6.3-8.2); Triglycerides 273 mg/dL (35-150)
[2021-01-22 10:25] LABS: Prostate Specific Antigen Scrn 2.07 ng/mL (0.1-4.0)
== END ==
PROVIDERS: PCP Internal Medicine; Referring Provider Internal Medicine; Visit Provider Internal Medicine
DX: E11.21 Type 2 diabetes mellitus with diabetic nephropathy (principal); Z12.5 Encounter for screening for malignant neoplasm of prostate; E11.65 Type 2 diabetes mellitus with hyperglycemia; E78.5 Hyperlipidemia, unspecified; I10 Essential (primary) hypertension
CPT/HCPCS: 36415; 80053; 80061; 83036; G0103

== ENCOUNTER → 2021-08-16 10:38 | Outpatient (CLI) | payer MEDICARE, OTHER, SELFPAY ==
[2021-08-16 12:17] LABS: Hemoglobin A1C% w Est Avg Glu 6.9 % (4.0-6.0)
[2021-08-16 12:59] LABS: Alanine Aminotransferase 16 IU/L (<50); Albumin 4.1 g/dL (3.5-5.0); Albumin Globulin Ratio 1.6 (1.0-2.8); Alkaline Phosphatase 72 U/L (38-126); Aspartate Aminotransferase 18 IU/L (17-59); BUN Creatinine Ratio 18.1 (6-22); Bilirubin Total 0.3 mg/dL (0.2-1.3); Blood Urea Nitrogen 17 mg/dL (9-20); Calcium 9.7 mg/dL (8.4-10.2); Carbon Dioxide 28 mmol/L (22-32); Chloride 102 mmol/L (98-107); Estimated Glomerular Filt Rate > 60.0 mL/min (>60); Globulin 2.6 g/dL (1.7-4.1); Glucose 133 mg/dL (80-110); HEMOLYSIS < 15 (0-50); Potassium 4.6 mmol/L (3.4-5.1); Sodium 137 mmol/L (137-145); Total Protein 6.7 g/dL (6.3-8.2)
[2021-08-16 13:29] LABS: Thyroid Stimulating Hormone 0.947 uIU/mL (0.47-4.68)
== END ==
PROVIDERS: PCP Internal Medicine; Referring Provider Internal Medicine; Visit Provider Internal Medicine
DX: E11.69 Type 2 diabetes mellitus with other specified complication (principal); E03.9 Hypothyroidism, unspecified; E66.9 Obesity, unspecified; I10 Essential (primary) hypertension; E78.5 Hyperlipidemia, unspecified
CPT/HCPCS: 36415; 80053; 83036; 84439; 84443

== ENCOUNTER → 2021-08-21 11:36 | Outpatient (CLI) | payer MEDICARE, OTHER, SELFPAY ==
[2021-08-21 12:35] LABS: Appearance Urine UA SL CLOUDY; Bilirubin Urine UA NEGATIVE (NEGATIVE); Color Urine UA YELLOW; Glucose Urine UA NEGATIVE (Negative); Ketones Urine UA NEGATIVE (NEGATIVE); Leukocyte Esterase Urine UA 3+ (NEGATIVE); Nitrite Urine UA NEGATIVE (Negative); Occult Blood Urine UA 3+ (Negative); Protein Urine UA NEGATIVE (Negative); Urobilinogen Urine UA 0.2 E.U./dL (0.2); pH Urine UA 6.5 (4.5-8.0)
[2021-08-21 12:42] LABS: Amorphous Sediment Urine 2+; Bacteria Urine Moderate (10-30); Culture Indicated Urine Specimen Cultured; Mucus Urine 1+ (Negative); RBC Urine 5-10/HPF (0-5/HPF); Squamous Epithelial Cell Urine 1-5 /HPF (0-5/HPF); WBC Urine 10-30/HPF (0-5/HPF)
== END ==
PROVIDERS: PCP Internal Medicine; Referring Provider Internal Medicine; Visit Provider Internal Medicine
DX: N39.0 Urinary tract infection, site not specified (principal)
CPT/HCPCS: 81001; 87077; 87086; 87147; 87186

== ENCOUNTER → 2022-03-21 10:34 | Outpatient (CLI) | payer MEDICARE, OTHER, SELFPAY ==
[2022-03-21 12:06] LABS: Alanine Aminotransferase 14 IU/L (<50); Albumin 3.7 g/dL (3.5-5.0); Albumin Globulin Ratio 1.6 (1.0-2.8); Alkaline Phosphatase 74 U/L (38-126); Aspartate Aminotransferase 15 IU/L (17-59); BUN Creatinine Ratio 19.6 (6-22); Bilirubin Total 0.3 mg/dL (0.2-1.3); Blood Urea Nitrogen 18 mg/dL (9-20); Calcium 9.2 mg/dL (8.4-10.2); Carbon Dioxide 29 mmol/L (22-32); Chloride 97 mmol/L (98-107); Cholesterol 139 mg/dL (140-199); Estimated Glomerular Filt Rate > 60 mL/min (>60); Globulin 2.3 g/dL (1.7-4.1); Glucose 248 mg/dL (80-110); HDL Cholesterol 30 mg/dL (40-60); HEMOLYSIS < 15 (0-50); LDL Cholesterol Calculated 56 mg/dL (<100); Potassium 4.7 mmol/L (3.4-5.1); Sodium 137 mmol/L (137-145); Triglycerides 266 mg/dL (35-150)
[2022-03-21 12:10] LABS: Hemoglobin A1C% w Est Avg Glu 7.3 % (4.0-6.0)
== END ==
PROVIDERS: PCP Internal Medicine; Referring Provider Internal Medicine; Visit Provider Internal Medicine
DX: E11.69 Type 2 diabetes mellitus with other specified complication (principal); E78.2 Mixed hyperlipidemia; E66.9 Obesity, unspecified; I10 Essential (primary) hypertension
CPT/HCPCS: 36415; 80053; 80061; 83036

== ENCOUNTER 2022-10-28 10:22 | Emergency (ER) | payer MEDICARE, OTHER, SELFPAY ==
[2022-10-28] VITALS (27 sets, daily range): BP systolic 138–177; BP diastolic 60–72; PULSE 61–77; RESP 16–27; TEMP 36.7; O2SAT 92–100; BMI 48.8
--- NOTE | 2022-10-28 10:39 | DI.RAD.S_ITS ---
PROCEDURE: XR CHEST 1V INDICATIONS: chest pain TECHNIQUE: One view of the chest was acquired. COMPARISON: [facility], , CHEST 1 VIEW, 04/13/2017, 6:29. FINDINGS: Surgical changes and devices: None. Lungs and pleura: Lungs are clear. No pleural effusions or pneumothorax. Mediastinum: Mediastinal contours appear normal. Heart size is enlarged. Bones and chest wall: No suspicious bony lesions. Overlying soft tissues appear unremarkable. IMPRESSION: 1. Cardiomegaly. 2. No acute process. Dictated by: Lashell Hernandez M.D. on 10/28/2022 at 11:03 Approved by: Lashell Hernandez M.D. on 10/28/2022 at 11:03
--- NOTE | 2022-10-28 10:57 | DI.CT.S_ITS ---
PROCEDURE: CT HEAD/BRAIN WO CON INDICATIONS: falling TECHNIQUE: Noncontrast 4.5 mm thick angled axial sections acquired from the foramen magnum to the vertex, with coronal and sagittal reformats. For radiation dose reduction, the following was used: automated exposure control, adjustment of mA and/or kV according to patient size. COMPARISON: None. FINDINGS: Image quality: Excellent. CSF spaces: Basal cisterns are patent. No extra-axial fluid collections. The ventricles are symmetric in size and shape. Brain: No intracranial bleeds or masses. There is cerebral volume loss for age, with resultant ventricular and sulcal prominence. There are periventricular and deep white matter chronic small vessel ischemic changes. There is intracranial internal carotid artery atherosclerosis. Skull and face: Calvarium and visualized facial bones appear intact, without suspicious lesions. Sinuses: Visualized sinuses and mastoids are clear. IMPRESSION: No acute intracranial abnormality. Dictated by: Lashell Hernandez M.D. on 10/28/2022 at 11:12 Approved by: Lashell Hernandez M.D. on 10/28/2022 at 11:13
[2022-10-28 11:09] LABS: Add Manual Diff / Slide Review NO; Basophils Absolute Auto 0 /uL (0-100); Basophils Percent Auto 0.4 % (0-2); Eosinophils Absolute Auto 300 /uL (0-450); Eosinophils Percent Auto 2.9 % (2-4); Hematocrit 35.5 % (41-53); Hemoglobin 11.8 g/dL (13.5-17.5); Lymphocytes Absolute Auto 1400 /uL (1100-4500); Lymphocytes Percent Auto 15.3 % (25-40); Mean Corpuscular HGB Conc 33.3 % (30-36); Monocytes Absolute Auto 600 /uL (0-900); Neutrophils Absolute Auto 6600 /uL (1500-7000); Neutrophils Percent Auto 74.4 % (50-75); Platelet Count 242 X10^3/uL (150-400); Red Blood Cell Count 4.23 X10^6/uL (4.5-5.9); Red Cell Distribution Width 16.2 % (11.6-14.8); White Blood Cell Count 8.8 X10^3/uL (4.5-11.0)
[2022-10-28 11:15] LABS: Alanine Aminotransferase 20 IU/L (<50); Albumin Globulin Ratio 1.3 (1.0-2.8); Alkaline Phosphatase 92 U/L (38-126); Aspartate Aminotransferase 27 IU/L (17-59); BUN Creatinine Ratio 29.5 (6-22); Bilirubin Total 0.3 mg/dL (0.2-1.3); Blood Urea Nitrogen 33 mg/dL (9-20); Calcium 9.1 mg/dL (8.4-10.2); Carbon Dioxide 32 mmol/L (22-32); Chloride 99 mmol/L (98-107); Creatine Kinase 75 U/L (55-170); Estimated Glomerular Filt Rate > 60 mL/min (>60); Globulin 3.1 g/dL (1.7-4.1); Glucose 200 mg/dL (80-110); HEMOLYSIS < 15 (0-50); Lipase 62 U/L (23-300); Potassium 4.5 mmol/L (3.4-5.1); Sodium 136 mmol/L (137-145); Total Protein 7.1 g/dL (6.3-8.2)
--- NOTE | 2022-10-28 11:26 | ED.WEAKNESS ---
HPI - Weakness General Chief complaint: Weakness Stated complaint: weakness x3 days Time Seen by Provider: 10/28/22 10:37 Source: patient and EMS Mode of arrival: EMS History of Present Illness HPI Narrative: Patient is a 67-year-old male with multiple comorbidities including diabetes, hypothyroid, obstructive sleep apnea presenting today with ongoing right leg weakness. He is had chronic ongoing back pain he has been evaluated by spinal surgery her reports that he is not a surgical candidate due to weight. According to he has had increasing falls increasing leg weakness. He does use a walker some of the time. They report that they have been new puppy who also knocked him down some of the time. She reports that he is extra sleepy during the day he uses his CPAP regularly he can not sleep without it. However when he sleepy he has some slurring of speech in his confused. He reports no nausea or vomiting. No headache no chest pain palpitations shortness of breath. No changes in bowel or bladder habits. He denies any numbness or tingling in his saddle area. Related Data Home Medications Medication Instructions Recorded Confirmed aspirin 81 mg tablet,delayed 81 mg PO QDAY ##0 06/28/12 04/03/22 release vit C,U-Dq-cowtih-lutein-zeaxan 60 1 cap PO QDAY ##0 12/10/12 04/03/22 mg-13.5 mg-15 mg-2 mg-6 mg capsule (Ocuvite Lutein and Zeaxanthin) multivitamin 1 tab PO DAILY 05/03/18 04/03/22 naproxen sodium 220 mg capsule 220 mg PO BID PRN 05/03/18 04/03/22 (Aleve) melatonin 5 mg capsule mg PO .noct insomia 06/08/18 04/03/22 Respioronics Dreamstation CPAP #1 ea 03/09/19 04/03/22 Blood Boost 1 cap PO BID 11/07/19 04/03/22 cyclobenzaprine 10 mg tablet 10 mg PO TID PRN muscle spasm 08/16/21 04/03/22 fluoride (sodium) 1.1 % dental 1 applic PO BEDTIME 08/16/21 04/03/22 cream (SF 5000 Plus) Previous Rx's Medication Instructions Recorded fluticasone propionate 50 2 spray intranasal BEDTIME #16 08/09/19 mcg/actuation nasal grams spray,suspension sertraline 100 mg tablet 100 mg PO DAILY #90 tabs 08/16/21 glucagon (human recombinant) 1 mg 1 mg SUBCUT Q20M PRN hypoglycemia 10/29/21 solution for injection #1 ea levothyroxine 75 mcg tablet 75 mcg PO DAILY #90 tabs 12/10/21 carvedilol 25 mg tablet 25 mg PO BID #180 tabs 01/30/22 metformin 500 mg tablet 1,000 mg PO BID #360 tabs 04/11/22 insulin glargine 100 unit/mL 100 unit SUBCUT BID #60 mL 04/15/22 subcutaneous solution (Lantus U-100 Insulin) rosuvastatin 40 mg tablet (Crestor) 40 mg PO QDAY #90 tabs 04/22/22 insulin syringe-needle U-100 0.5 #100 ea 04/24/22 mL 31 gauge x 5/16 (Easy Comfort Insulin Syringe) insulin syringe-needle U-100 1 mL #100 ea 04/30/22 31 gauge x 1/4 (UltiCare Insulin Syringe) lisinopril 40 mg tablet 60 mg PO Q DAY #135 tabs 05/19/22 spironolactone 25 mg tablet 50 mg PO DAILY #180 tabs 05/19/22 levothyroxine 150 mcg tablet 150 mcg PO DAILY #90 tabs 06/09/22 blood-glucose meter,continuous #1 ea 07/17/22 (Dexcom G6 Manager Export) blood-glucose sensor (Dexcom G6 #3 ea 07/17/22 Sensor device) blood-glucose meter,continuous #1 ea 07/18/22 (Dexcom G6 Manager Export) blood-glucose sensor (Dexcom G6 #3 ea 07/18/22 Sensor device) blood-glucose transmitter (Dexcom #1 ea 07/18/22 G6 Transmitter device) insulin regular human 100 unit/mL See Rx Instructions SUBCUT 07/29/22 injection solution (Humulin R .COMPLEX #50 mL Regular U-100 Insulin) amlodipine 10 mg tablet 10 mg PO QDAY #30 tabs 09/17/22 chlorthalidone 25 mg tablet 25 mg PO DAILY #90 tabs 09/25/22 oxycodone-acetaminophen 5 mg-325 See Rx Instructions PO Q4-6H PRN 10/15/22 mg tablet pain #15 tabs cephalexin 500 mg capsule 500 mg PO BID 7 days #14 caps 10/28/22 Allergies Allergy/AdvReac Type Severity Reaction Status Date / Time No Known Drug Allergies Allergy Verified 04/03/22 10:38 Review of Systems Review of Systems ROS Unobtainable: All systems reviewed & are unremarkable except as noted in HPI and below Patient History Medical History Acquired hypothyroidism (01/31/11) Diabetes mellitus type 2 in obese (01/31/11) Essential hypertension (02/04/11) H/O adenomatous polyp of colon Hyperlipidemia, unspecified (01/31/11) 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 alec/hindu: Agnostic travel history: recent leisure activities: sports, hunting, fishing, reading and other Smoking Status: Former smoker Tobacco: How many years used: 3 Smokeless tobacco user: other quit status: quit date established second hand exposure: Yes (Children) alcohol intake: current substance use type: does not use Smoking Status: Former smoker alcohol intake frequency: holidays/special occasions only Substance Use Type: does not use Exam Initial Vital Signs Initial Vital Signs: Vital Signs Temperature 98.0 F 10/28/22 10:31 Pulse Rate 68 10/28/22 10:31 Respiratory Rate 24 05/09/23 10:31 Blood Pressure 147/67 H 10/28/22 10:31 Pulse Oximetry 99 10/28/22 10:31 Oxygen Delivery Method Room Air 10/28/22 10:31 GENERAL: Alert 67-year-old male overweight no acute distress does not appear in any severe pain and in no acute distress. HEENT: Head atraumatic,EOMI, pupils reactive, face symmetric, moist mucous membranes CARDIOVASCULAR: Regular rate and rhythm without murmurs, rubs or gallops. RESPIRATORY: Breath sounds equal bilaterally, no wheezes rales or rhonchi. ABDOMEN: Soft, nontender. Normoactive bowel sounds all 4 quadrants. No guarding or rebound. EXTREMITIES: Normal range of motion, no clubbing or edema. Neurovascularly intact NEUROLOGICAL: Alert and oriented x4.Normal gait and speech. Cranial nerves II through XII grossly intact. Good ulfsmc-mu-lsiv, good xhpe-zl-nwgd, strength equal bilaterally, no dysarthria or aphasia, sensation in tact to soft touch bilaterally, no visual changes, no facial droop pain while lifting right leg in his back. Unable to fully lift right leg due to pain. SKIN: Warm, dry, no laceration, no petechiae, no rashes or lesions. 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 Stat 10/28/22 15:53 Consult to Home Health Stat 10/28/22 17:03 UA dip and micro [Urinalysis and Microscopic] Stat Urine Culture Stat Discontinued Medications Ceftriaxone Sodium 1,000 mg/ (Sodium Chloride) 100 mls @ 200 mls/hr IV NOW ONE Stop: 10/28/22 17:10 Last Infusion: 10/28/22 18:20 Dose: 0 mls/hr Documented By: Admin: 10/28/22 17:39 Dose: 200 mls/hr Documented By: BS Vital Signs Vital signs: Vital Signs - 8 hr 10/28/22 13:56 10/28/22 11:24 10/28/22 11:30 Pulse Rate 77 64 65 Respiratory Rate 20 20 Blood Pressure Pulse Oximetry 96 99 Oxygen Delivery Method 10/28/22 11:31 10/28/22 11:35 10/28/22 11:35 Pulse Rate 66 63 Respiratory Rate 22 27 H Blood Pressure 156/68 H Pulse Oximetry 92 95 Oxygen Delivery Method 10/28/22 12:11 10/28/22 12:12 10/28/22 12:12 Pulse Rate 64 67 Respiratory Rate 20 Blood Pressure 143/65 H Pulse Oximetry 96 99 Oxygen Delivery Method 10/28/22 12:30 10/28/22 13:00 10/28/22 13:26 Pulse Rate 66 62 63 Respiratory Rate 17 17 22 Blood Pressure Pulse Oximetry 100 92 97 Oxygen Delivery Method 10/28/22 13:26 10/28/22 13:30 10/28/22 13:54 Pulse Rate 61 Respiratory Rate 22 Blood Pressure 153/68 H 164/72 H Pulse Oximetry 97 Oxygen Delivery Method 10/28/22 13:54 10/28/22 14:00 10/28/22 14:01 Pulse Rate 70 66 Respiratory Rate 21 18 Blood Pressure 144/60 H Pulse Oximetry 100 98 Oxygen Delivery Method 10/28/22 14:01 10/28/22 14:30 10/28/22 14:31 Pulse Rate 64 64 Respiratory Rate 16 20 Blood Pressure 142/63 H Pulse Oximetry 98 95 Oxygen Delivery Method 10/28/22 14:31 10/28/22 15:50 10/28/22 15:51 Pulse Rate 63 Respiratory Rate 19 Blood Pressure 138/62 Pulse Oximetry 96 98 Oxygen Delivery Method Room Air 10/28/22 15:51 10/28/22 16:00 10/28/22 16:01 Pulse Rate 66 66 68 Respiratory Rate Blood Pressure Pulse Oximetry 99 99 98 Oxygen Delivery Method 10/28/22 16:01 10/28/22 16:30 10/28/22 16:31 Pulse Rate 65 Respiratory Rate Blood Pressure 177/67 H 153/67 H Pulse Oximetry 99 Oxygen Delivery Method 10/28/22 16:31 10/28/22 17:00 10/28/22 17:00 Pulse Rate 69 66 Respiratory Rate Blood Pressure 157/72 H Pulse Oximetry 97 99 Oxygen Delivery Method 10/28/22 17:30 10/28/22 17:31 10/28/22 17:31 Pulse Rate 68 68 Respiratory Rate Blood Pressure 152/67 H Pulse Oximetry 100 99 Oxygen Delivery Method 10/28/22 18:00 10/28/22 18:00 Pulse Rate 63 Respiratory Rate Blood Pressure 154/71 H Pulse Oximetry 98 Oxygen Delivery Method MDM - Weakness Lab Data 10/28/22 10:28 10/28/22 10:28 Labs: Lab Results 10/28/22 10/28/22 10/28/22 Range/Units 10:28 10:28 12:35 WBC 8.8 (4.5-11.0) X10^3/uL RBC 4.23 L (4.5-5.9) X10^6/uL Hgb 11.8 L (13.5-17.5) g/dL Hct 35.5 L (41-53) % MCV 84.0 (80-100) fL MCH 28.0 (26-34) PG MCHC 33.3 (30-36) % RDW 16.2 H (11.6-14.8) % Plt Count 242 (150-400) X10^3/uL Neut % (Auto) 74.4 (50-75) % Lymph % (Auto) 15.3 L (25-40) % [place] % (Auto) 7.0 (3-14) % Eos % (Auto) 2.9 (2-4) % Baso % (Auto) 0.4 (0-2) % Neut # (Auto) 6600 (2844-0952) /uL Lymph # (Auto) 1400 (7624-8882) /uL [place] # (Auto) 600 (0-900) /uL Eos # (Auto) 300 (0-450) /uL Baso # (Auto) 0 (0-100) /uL Sodium 136 L (137-145) mmol/L Potassium 4.5 (3.4-5.1) mmol/L Chloride 99 (98-107) mmol/L Carbon Dioxide 32 (22-32) mmol/L BUN 33 H (9-20) mg/dL Creatinine 1.12 (0.66-1.25) mg/dL Estimated GFR > 60 (>60) mL/min BUN/Creatinine Ratio 29.5 H (6-22) Glucose 200 H (80-110) mg/dL Calcium 9.1 (8.4-10.2) mg/dL Total Bilirubin 0.3 (0.2-1.3) mg/dL AST 27 (17-59) IU/L ALT 20 (<50) IU/L Alkaline Phosphatase 92 (38-126) U/L Total Creatine Kinase 75 (55-170) U/L CK-MB (CK-2) TNP CK-MB (CK-2) Rel Index TNP Troponin I 0.038 H 0.033 (0.01-0.034) ng/mL Total Protein 7.1 (6.3-8.2) g/dL Albumin 4.0 (3.5-5.0) g/dL Globulin 3.1 (1.7-4.1) g/dL Albumin/Globulin Ratio 1.3 (1.0-2.8) Lipase 62 (23-300) U/L Procalcitonin 0.05 (<0.5) ng/mL Urine Color Urine Appearance Urine pH (4.5-8.0) Ur Specific [place] (1.000-1.035) Urine Protein (Negative) Urine Glucose (UA) (Negative) g/dL Urine Ketones (NEGATIVE) Urine Occult Blood (Negative) Urine Nitrate (Negative) Urine Bilirubin (NEGATIVE) Urine Urobilinogen (0.2) E.U./dL Ur Leukocyte Esterase (NEGATIVE) Urine RBC (0-5/HPF) Urine WBC (0-5/HPF) Urine Bacteria (None) Ur Culture Indicated? 10/28/22 Range/Units 17:03 WBC (4.5-11.0) X10^3/uL RBC (4.5-5.9) X10^6/uL Hgb (13.5-17.5) g/dL Hct (41-53) % MCV (80-100) fL MCH (26-34) PG MCHC (30-36) % RDW (11.6-14.8) % Plt Count (150-400) X10^3/uL Neut % (Auto) (50-75) % Lymph % (Auto) (25-40) % [place] % (Auto) (3-14) % Eos % (Auto) (2-4) % Baso % (Auto) (0-2) % Neut # (Auto) (4464-2367) /uL Lymph # (Auto) (7933-6093) /uL [place] # (Auto) (0-900) /uL Eos # (Auto) (0-450) /uL Baso # (Auto) (0-100) /uL Sodium (137-145) mmol/L Potassium (3.4-5.1) mmol/L Chloride (98-107) mmol/L Carbon Dioxide (22-32) mmol/L BUN (9-20) mg/dL Creatinine (0.66-1.25) mg/dL Estimated GFR (>60) mL/min BUN/Creatinine Ratio (6-22) Glucose (80-110) mg/dL Calcium (8.4-10.2) mg/dL Total Bilirubin (0.2-1.3) mg/dL AST (17-59) IU/L ALT (<50) IU/L Alkaline Phosphatase (38-126) U/L Total Creatine Kinase (55-170) U/L CK-MB (CK-2) CK-MB (CK-2) Rel Index Troponin I (0.01-0.034) ng/mL Total Protein (6.3-8.2) g/dL Albumin (3.5-5.0) g/dL Globulin (1.7-4.1) g/dL Albumin/Globulin Ratio (1.0-2.8) Lipase (23-300) U/L Procalcitonin (<0.5) ng/mL Urine Color Yellow Urine Appearance Sl cloudy Urine pH 7.5 (4.5-8.0) Ur Specific [place] 1.010 (1.000-1.035) Urine Protein Negative (Negative) Urine Glucose (UA) Negative (Negative) g/dL Urine Ketones Negative (NEGATIVE) Urine Occult Blood Negative (Negative) Urine Nitrate Positive H (Negative) Urine Bilirubin Negative (NEGATIVE) Urine Urobilinogen 0.2 (0.2) E.U./dL Ur Leukocyte Esterase 2+ H (NEGATIVE) Urine RBC None seen (0-5/HPF) Urine WBC 1-5/hpf (0-5/HPF) Urine Bacteria Many (>30) H (None) Ur Culture Indicated? Specimen cultured Imaging Data Chest x-ray: Radiologist Impression: PROCEDURE:? XR CHEST 1V ? INDICATIONS:? chest pain ? TECHNIQUE:? One view of the chest was acquired.? ? COMPARISON:? [facility], , CHEST 1 VIEW, 04/13/2017, 6:29. ? FINDINGS:? ? Surgical changes and devices:? None.? ? Lungs and pleura:? Lungs are clear.? No pleural effusions or pneumothorax.? ? Mediastinum:? Mediastinal contours appear normal.? Heart size is enlarged. ? Bones and chest wall:? No suspicious bony lesions.? Overlying soft tissues appear unremarkable.? ? IMPRESSION:? 1. Cardiomegaly. 2. No acute process.? ? ? Dictated by: Lashell Hernandez M.D. on 10/28/2022 at 11:03 CT scan - head: Radiologist Impression: PROCEDURE:? CT HEAD/BRAIN WO CON ? INDICATIONS:? falling ? TECHNIQUE:? Noncontrast 4.5 mm thick angled axial sections acquired from the foramen magnum to the vertex, with coronal and sagittal reformats.? For radiation dose reduction, the following was used:? automated exposure control, adjustment of mA and/or kV according to patient size.? ? COMPARISON:? None. ? FINDINGS:? Image quality:? Excellent.? ? CSF spaces:? Basal cisterns are patent.? No extra-axial fluid collections.? The ventricles are symmetric in size and shape.? ? Brain:? No intracranial bleeds or masses.? There is cerebral volume loss for age, with resultant ventricular and sulcal prominence.? There are periventricular and deep white matter chronic small vessel ischemic changes.? There is intracranial internal carotid artery atherosclerosis.? ? Skull and face:? Calvarium and visualized facial bones appear intact, without suspicious lesions.? ? Sinuses:? Visualized sinuses and mastoids are clear.? ? IMPRESSION:? No acute intracranial abnormality. ? ? Dictated by: Lashell Hernandez M.D. on 10/28/2022 at 11:12 ? CTA - brain/neck: Radiologist Impression: PROCEDURE:? CT ANGIO HEAD AND NECK ? INDICATIONS:? 67-year-old male with right-sided leg weakness ? TECHNIQUE:? ? After the administration of intravenous contrast, 1 mm thick sections acquired from the aortic arch through the [place] of [place].? Post-contrast 4.5 mm thick sections then re-acquired from the foramen magnum to the vertex.? MIP reformats of the arterial vasculature were utilized.? For radiation dose reduction, the following was used:? automated exposure control, adjustment of mA and/or kV according to patient size.? ? COMPARISON:? None. ? FINDINGS: ? Cerebral CT Angiogram: ? Internal carotid arteries:? Calcified atherosclerotic plaque in the cavernous segments of both internal carotid arteries results in moderate distal stenosis bilaterally ? Anterior cerebral arteries:? Unremarkable.? No significant stenosis.? No occlusion.? No aneurysm. ? Middle cerebral arteries:? Unremarkable.? No significant stenosis.? No occlusion.? No aneurysm. ? Posterior cerebral arteries:? There is a focal occlusion on axial image 4/108 of the right P2 SUPERANNUATION FUNDS MANAGER appears to be some reconstitution of distal vessels through collateralization.? Left SUPERANNUATION FUNDS MANAGER unremarkable ? Basilar artery:? Unremarkable.? No significant stenosis.? No occlusion.? No aneurysm. ? Vertebral arteries:? There is atherosclerotic occlusion of the left intradural vertebral artery right and distal vertebral artery unremarkable. ? Dural venous sinuses:? Unremarkable given phase of enhancement. ? Other:? Arterial phase brain parenchyma is unremarkable. ? Neck CT Angiogram: ? Internal carotid arteries:? Calcified and noncalcified atherosclerotic plaque in both proximal internal carotid arteries were results in 70% stenosis on the left and 30% stenosis in the right ? Common carotid arteries:? Unremarkable.? No significant stenosis.? No dissection or occlusion. ? External carotid arteries:? Unremarkable.? No occlusion. ? Vertebral arteries:? Unremarkable.? No significant stenosis.? No dissection or occlusion. ? Other:? Degenerative disc disease and arthropathy present in the cervical spine ? Aortic Arch and Mediastinum:? Partially visualized aortic arch unremarkable without evidence of aneurysm. Origins of the great vessels unremarkable. ? IMPRESSION: ? 1. 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 2. Atherosclerotic plaque results in 70% right proximal ICA stenosis and at least moderate bilateral cavernous ICA stenosis ? ? Note: Any reported proximal ICA stenosis was calculated using NASCET guidelines CT Lumbar: Radiologist Impression: PROCEDURE:? CT LUMBAR SPINE WO CON ? INDICATIONS:? pain right leg weakness ? TECHNIQUE:? Noncontrast 3 mm thick sections acquired from the T12 level to the sacrum.? Sagittal and coronal reformats were constructed.? For radiation dose reduction, the following was used:? automated exposure control.? ? COMPARISON:? None. ? FINDINGS:? Image quality:? Excellent.? ? Bones:? There is normal bony alignment.? No acute vertebral body compression fractures.? No suspicious lytic or blastic bony lesions.? No pars defects.? Moderate L5-S1 degenerative disc disease.? Mild L1-L2, L2-L3, L3-L4 and L4-L5 degenerative disc disease. ?Mild L3-L4 and L4-L5 facet arthropathy.? Mild right and moderate left L5-S1 facet arthropathy.? No severe central canal narrowing.? No severe neural foraminal narrowing. ? Soft tissues:? No retroperitoneal masses or hematomas.? Visualized aorta is normal in caliber. Scattered atherosclerotic calcifications involving the visualized abdominal and pelvic vasculature.? ? ? IMPRESSION:? ? 1. Multilevel degenerative disc disease. ? 2. Multilevel facet arthropathy. ? 3. No fracture. No acute osseous lesion. If symptoms and/or clinical suspicion for pathology persists, evaluation with MRI should be considered for further assessment. ? ? ? Dictated by: Amie Cantu MD, PhD on 10/28/2022 at 13:07 ? ? ECG Data Interpretation: Sinus rhythm rate 69 AR interval 248 QRS [address] changes no T-wave inversions similar to previous EKG in 2014 MDM Narrative Medical decision making narrative: Patient is a 59-year-old male history of multiple comorbidities presenting today with falling and chronic back pain with right leg weakness. This seems to happen going on for some time. concerned because he seems to be little bit more sleepy for awhile. There is no evidence of infection today. No evidence of sepsis. No significant leukocytosis electrolyte abnormality ANDRZEJ. No evidence of DKA. Troponin was just over the border as indeterminate however it started trending downward on the no concern for acute coronary syndrome. His right leg has been weak for awhile no concern for cauda equina. He apparently was evaluated by Dr. Hunt Orthopedic surgery he told me was not a surgical candidate and that he needed to lose weight prior to surgery. They have been working at home with this. Patient was seen evaluated by Physical therapy here in the emergency department to help him with his walker and stairs. Encouraged to make some house adjustments with rales and things. At this time patient really does not meet any inpatient criteria. We have had social work evaluate patient and set up home health care for him. I have called and spoken with PCP nurse he has follow-up appointment this Thursday in 3 days. Patient is found have a UTI with nitrites, he is given 1 dose of Rocephin in the ED. No evidence of sepsis. UTI may be causing increasing weakness in his already leg, and may also explain his in tiredness. At this time both and patient agree to go home. Discharge Plan Departure Patient Disposition: Home Clinical Impression: Acute UTI, Acute exacerbation of chronic low back pain Instructions: DI for Urinary Tract Infection (UTI) Activity Restrictions/Additional Instructions: *You have been diagnosed with bladder infection, acute on chronic back *What to do: At this time you have a few things going on. I think that your back pain is actually getting a little bit worse. You probably a little bit more weak due to a bladder infection. You were given 1 dose of IV antibiotics it is good for 24 hours however please feel your antibiotic and start taking it. Please follow physical therapy instructions and recommendations about how to get up and down stairs. Home health referral has been started by the emergency department. *Continue to take medications as directed Keflex 500 mg twice a day for 7 days--> SENT TO [place] *Follow up with your primary care provider in 2-3 days or call [phone] Dr. Saxena appointment at 11:00 a.m. on 10/31/2022 *Return to ER if you should have increasing weakness falls, confusion [or] any new, worsening or concerning symptoms Prescriptions: New cephalexin 500 mg capsule 500 mg PO BID 7 Days Qty: 14 0RF No Action aspirin 81 MG tablet,delayed release (DR/EC) 81 mg PO QDAY Qty: 0 vit C,P-Uj-hwjpo-lutein-zeaxan [Ocuvite Lutein and Zeaxanthin] 1 EACH capsule 1 cap PO QDAY Qty: 0 glucagon (human recombinant) 1 mg recon soln 1 mg SUBCUT Q20M PRN (Reason: hypoglycemia) Qty: 1 4RF Rx Instructions: until response levothyroxine 75 mcg tablet 75 mcg PO DAILY Qty: 90 3RF Rx Instructions: take with 150, total dose 225. carvedilol 25 mg tablet 25 mg PO BID Qty: 180 3RF Rx Instructions: give with food (meal/snack) metformin 500 mg tablet 1,000 mg PO BID Qty: 360 3RF Rx Instructions: w/Meals Lantus U-100 Insulin 100 unit/mL solution 100 unit SUBCUT BID Qty: 60 6RF rosuvastatin [Crestor] 40 mg tablet 40 mg PO QDAY Qty: 90 1RF (DME) insulin syringe-needle U-100 [Easy Comfort Insulin Syringe] 0.5 mL 31 gauge x 5/16 syringe See Rx Instructions .ROUTE .MEDSUPPLY Qty: 100 6RF Rx Instructions: Use 4x a day to test blood sugars (DME) insulin syringe-needle U-100 [UltiCare Insulin Syringe] 1 mL 31 gauge x 1/4 syringe See Rx Instructions .Route Qty: 100 6RF Rx Instructions: Use to inject insulin 4x per day spironolactone 25 mg tablet 50 mg PO DAILY Qty: 180 3RF lisinopril 40 mg tablet 60 mg PO Q DAY Qty: 135 3RF levothyroxine 150 mcg tablet 150 mcg PO DAILY Qty: 90 1RF Rx Instructions: WITH 75MCG TAB FOR A TOTAL OF 225MCG// PLEASE GET FASTING LABS DONE PRIOR TO 09/2022 APPT. THANKS (DME) Dexcom G6 Sensor Device See Rx Instructions .Route Qty: 3 3RF Rx Instructions: As directed ([facility] [place]) Dexcom G6 Manager Export Misc See Rx Instructions .Route Qty: 1 0RF Rx Instructions: As directed ([facility] [place]) Dexcom G6 Manager Export Misc See Rx Instructions .Route Qty: 1 0RF Rx Instructions: As directed ([facility] [place]) Dexcom G6 Sensor Device See Rx Instructions .Route Qty: 3 0RF Rx Instructions: As directed ([facility] [place]) Dexcom G6 Transmitter Device See Rx Instructions .Route Qty: 1 0RF Rx Instructions: As directed Humulin R Regular U-100 Insuln 100 unit/mL solution See Rx Instructions SUBCUT .COMPLEX Qty: 50 5RF Rx Instructions: Inject 50-100 units up to 4 times daily as needed for hyperglycemia/meals subcut ; amlodipine 10 mg tablet 10 mg PO QDAY Qty: 30 0RF Rx Instructions: PT DUE TO COMPLETE FASTING LABS/APPT W/PCP PRIOR TO END OF RX. PLEASE CALL TO SCHEDULE. chlorthalidone 25 mg tablet 25 mg PO DAILY Qty: 90 3RF oxycodone-acetaminophen 5-325 mg tablet See Rx Instructions PO Q4-6H PRN (Reason: pain) Qty: 15 0RF Rx Instructions: 1-2 TABS PO Q4-6H PRN; multivitamin tablet 1 tab PO DAILY naproxen sodium [Aleve] 220 mg capsule 220 mg PO BID PRN melatonin 5 mg capsule PO .noct fluticasone propionate 50 mcg/actuation spray,suspension 2 spray NASAL BEDTIME Qty: 16 0RF Rx Instructions: administer into each nostril Blood Boost 1 cap PO BID cyclobenzaprine 10 mg tablet 10 mg PO TID PRN (Reason: muscle spasm) Patient Comments: TAKE ONE TABLET BY MOUTH THREE TIMES DAILY NEEDED fluoride (sodium) [SF 5000 Plus] 1.1 % cream 1 applic PO BEDTIME sertraline 100 mg tablet 100 mg PO DAILY Qty: 90 3RF (DME) Respioronics Dreamstation CPAP Qty: 1 Patient Comments: Pressure: 10-16 cmH2O DME: [facility] Rx Instructions: As directed Referrals: Jorge Saxena MD [Primary Care Provider] - Stand Alone Forms: Patient Portal/API
[2022-10-28 11:27] LABS: Troponin I 0.038 ng/mL (0.01-0.034)
[2022-10-28 11:32] LABS: Procalcitonin 0.05 ng/mL (<0.5)
--- NOTE | 2022-10-28 11:54 | DI.CT.S_ITS ---
PROCEDURE: CT ANGIO HEAD AND NECK INDICATIONS: 67-year-old male with right-sided leg weakness TECHNIQUE: After the administration of intravenous contrast, 1 mm thick sections acquired from the aortic arch through the [place] of [place]. Post-contrast 4.5 mm thick sections then re-acquired from the foramen magnum to the vertex. MIP reformats of the arterial vasculature were utilized. For radiation dose reduction, the following was used: automated exposure control, adjustment of mA and/or kV according to patient size. COMPARISON: None. FINDINGS: Cerebral CT Angiogram: Internal carotid arteries: Calcified atherosclerotic plaque in the cavernous segments of both internal carotid arteries results in moderate distal stenosis bilaterally Anterior cerebral arteries: Unremarkable. No significant stenosis. No occlusion. No aneurysm. Middle cerebral arteries: Unremarkable. No significant stenosis. No occlusion. No aneurysm. Posterior cerebral arteries: There is a focal occlusion on axial image 4/108 of the right P2 [employer]AG[employer] appears to be some reconstitution of distal vessels through collateralization. Left [employer]AGGER unremarkable Basilar artery: Unremarkable. No significant stenosis. No occlusion. No aneurysm. Vertebral arteries: There is atherosclerotic occlusion of the left intradural vertebral artery right and distal vertebral artery unremarkable. Dural venous sinuses: Unremarkable given phase of enhancement. Other: Arterial phase brain parenchyma is unremarkable. Neck CT Angiogram: Internal carotid arteries: Calcified and noncalcified atherosclerotic plaque in both proximal internal carotid arteries were results in 70% stenosis on the left and 30% stenosis in the right Common carotid arteries: Unremarkable. No significant stenosis. No dissection or occlusion. External carotid arteries: Unremarkable. No occlusion. Vertebral arteries: Unremarkable. No significant stenosis. No dissection or occlusion. Other: Degenerative disc disease and arthropathy present in the cervical spine Aortic Arch and Mediastinum: Partially visualized aortic arch unremarkable without evidence of aneurysm. Origins of the great vessels unremarkable. IMPRESSION: 1. 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 Atherosclerotic plaque results in 70% right proximal ICA stenosis and at least moderate bilateral cavernous ICA stenosis Note: Any reported proximal ICA stenosis was calculated using NASCET guidelines. Approved by: Marshall Leblanc M.D. on 10/28/2022 at 12:02
--- NOTE | 2022-10-28 12:13 | DI.CT.S_ITS ---
PROCEDURE: CT LUMBAR SPINE WO CON INDICATIONS: pain right leg weakness TECHNIQUE: Noncontrast 3 mm thick sections acquired from the T12 level to the sacrum. Sagittal and coronal reformats were constructed. For radiation dose reduction, the following was used: automated exposure control. COMPARISON: None. FINDINGS: Image quality: Excellent. Bones: There is normal bony alignment. No acute vertebral body compression fractures. No suspicious lytic or blastic bony lesions. No pars defects. Moderate L5-S1 degenerative disc disease. Mild L1-L2, L2-L3, L3-L4 and L4-L5 degenerative disc disease. Mild L3-L4 and L4-L5 facet arthropathy. Mild right and moderate left L5-S1 facet arthropathy. No severe central canal narrowing. No severe neural foraminal narrowing. Soft tissues: No retroperitoneal masses or hematomas. Visualized aorta is normal in caliber. Scattered atherosclerotic calcifications involving the visualized abdominal and pelvic vasculature. IMPRESSION: 1. Multilevel degenerative disc disease. 2. Multilevel facet arthropathy. 3. No fracture. No acute osseous lesion. If symptoms and/or clinical suspicion for pathology persists, evaluation with MRI should be considered for further assessment. Dictated by: Amie Cantu MD, PhD on 10/28/2022 at 13:07 Approved by: Amie Cantu MD, PhD on 10/28/2022 at 13:10
[2022-10-28 13:09] LABS: Troponin I 0.033 ng/mL (0.01-0.034)
--- NOTE | 2022-10-28 16:30 | PT.IIE ---
Surgical History (Last Reviewed 10/28/22 @ 12:10 by Fiona Velazco DO) Anesthesia Status post appendectomy (1970) Status post colonoscopy (08/15/14) Status post hernia repair Medical History (Last Reviewed 10/28/22 @ 12:10 by Fiona Vealzco DO) Acquired hypothyroidism (01/31/11) Diabetes mellitus type 2 in obese (01/31/11) Essential hypertension (02/04/11) H/O adenomatous polyp of colon Hyperlipidemia, unspecified (01/31/11) nursing home (current) use of insulin Obesity, Class III, BMI 40-49.9 (morbid obesity) Obstructive sleep apnea of adult (01/31/11) Proteinuria (02/04/11) PTSD (post-traumatic stress disorder) Systolic murmur (01/28/17) Physical Therapy Inpatient Evaluation/Re-Eval M1 PT/OT-IP Prior Functional Status Start: 10/28/22 16:09 Freq: Status: Active Protocol: Document 10/28/22 16:10 ES (Rec: 10/28/22 16:30 ES [id number]) Medical Review Prior Functional Status Medical History Reviewed Yes Diet/Fluid Consistency Regular Communication WFL Mobility and Gait Ambulates with and without FWW with report of several recent falls. Activities of Daily Living and IADL's assists with dressing. Social History Household Members spouse,family Living Arrangements House Number of Floors (Floors) Two Floors Number of Stairs To Enter/Railing? 4 steps with single rail to the kitchen (usual entry), 1 step from the back of the house with longer walkway. Home Environment Walk in Shower,Not Wheelchair Accessible Home Equipment Front Wheel Walker Additional Social History Comment Lives with and disabled son. Son has a caregiver 4 days/week for full days, who takes care of some of the spinning frame changer also. Patient states his is worn out from caring for the family. Patient's bedroom is upstairs with an adjustable bed. He has considered sleeping on the main level but states he doesn 't usually have a problem getting up to the second level since there is a railing. There are 2 steps down into the kitchen and the living area without rails. He usually wraps his arm around the 4x4 beam on either side. He only has one FWW and isn't able to get it up/down the stairs so does not consistently use it. M2 PT-IP Current Condition Start: 10/28/22 16:09 Freq: Status: Active Protocol: Document 10/28/22 16:10 ES (Rec: 10/28/22 16:30 ES [id number]) Physical Therapy Current Condition Current Condition Evaluation Date 10/28/22 Treatment Diagnosis Weakness, repeated falls Onset Date 10/28/22 M3 PT-IP Subjective Start: 10/28/22 16:09 Freq: Status: Active Protocol: Document 10/28/22 16:10 ES (Rec: 10/28/22 16:30 ES [id number]) Subjective Physical Therapy Visit Type Type Initial Evaluation Visit Start Time 14:46 Visit Stop Time 15:31 Total Visit Minutes 45 Physical Therapy Visit Comments Patient Comments Patient reported having pain in the R hip resulting from multiple recent falls. He stated his leg feels like it gives out especially when going up/down stairs at home, which he has to do often due to having sunken living room and kitchen. Patient stated he is scheduled to go into OP PT soon. Patient agreeable to work with PT. Patient Goals To get around without falling. Therapy Pain Assessment Pain When Pain Assessed During Weight Bearing Pain Present Pain Present Pain Reported M4 PT-IP Mobility and Gait Start: 10/28/22 16:09 Freq: Status: Active Protocol: Document 10/28/22 16:10 ES (Rec: 10/28/22 16:30 ES [id number]) PT-Bed Mobility Assessment Supine to Sit Supine to Sit Standby Assistance Scooting Scooting to Edge of Bed Standby Assistance PT-Transfer Assessment Sit to and From Stand Sit to and from Stand Standby Assistance,Use of Upper Extremities Equipment Transfer Assistive Device Gait Belt,Front Wheeled Walker Orthotic/Prosthetic Devices or Brace: No Transfers Transfer Destination Bed Transfer Technique ambulated Transfer Ability Level of Assist Standby Assistance,Use of Upper Extremities Comments Mobility Comments Performed supine to sit with HOB partially raised and no use of rail. Required extra time to complete but no physical assist. Gait Assessment Gait Gait Assistance Required: Contact Guard Assist Distance (Feet) 10 Assistive Devices Assistive Device Gait Belt,Front Wheeled Walker Orthotic/Prosthetic Devices or Brace: No Gait Deviations General Gait Pattern Antalgic Factors Limiting Gait Function Factors Limiting Gait Function Decreased Strength,Pain Comments Gait Comments Patient had ambulated previously with nursing so did not ambulate much further due to increased pain with prolonged WB. Patient able to navigate safely with FWW for short household distances; recommended he have chairs placed strategically around the home to allow opportunities to sit as needed . Stair Climbing Assessment Evaluation Level of Assist On Stairs Minimal Assistance Devices Stair Climbing Assistive Devices Front Wheel Walker,Right Railing Technique/Endurance Stair Climbing Direction Ascend Stair Climbing Technique Step to Step Number of Steps Climbed 1 Query Text: Stair Climbing Set # Repetitions (reps) 1 Comments Stair Climbing Comments Instructed patient in the appropriate sequencing for step-to pattern on stairs to reduce risk of falls. Patient attempted to step up on stool but this was difficult due to needing wide GIULIANO for body habitus. Patient able to place L foot on stool without assistance. Recommended to patient to have a FWW available on each level to decrease fall risk. Also recommended clearing a path to use back entrance with single step vs using kitchen entrance with 4 steps; patient agreeable to this. PT-Balance Assessment Sitting Balance and Reactions Static Sitting Balance Ability Good Dynamic Sitting Balance Ability Good Standing Balance and Reactions Static Standing Balance Ability Good Dynamic Standing Balance Ability Fair Device Used FWW M5 PT-IP Objective Assessments Start: 10/28/22 16:09 Freq: Status: Active Protocol: Document 10/28/22 16:10 ES (Rec: 10/28/22 16:30 ES [id number]) Orientation Orientation/Cognition Level of Alertness Alert Orientation Name,Age,Birthday,Month,Date, Year,Day of Week,Place, Situation Language Function Ability No Deficits Noted Safety Awareness Understands Safety Issues Memory Description No Deficits Noted Gross Range of Motion Upper Extremity ROM Assessment Within Functional Limits Lower Extremity ROM Assessment Right Impaired Impairments R hip ROM limited 2/2 pain Strength Upper Extremity Strength Assessment Within Functional Limits Lower Extremity Strength Assessment Right Impaired Comments Strength Comments Unable to perform SLR R without some assistance 2/2 pain. Unable to hold full body weight on RLE 2/2 pain. Coordination Assessment Gross Coordination Gross Coordination WNL M6 PT-IP Treatment Start: 10/28/22 16:09 Freq: Status: Active Protocol: Document 10/28/22 16:10 ES (Rec: 10/28/22 16:30 ES [id number]) Physical Therapy Treatment Education Education Provided Precautions,Safety M7 PT-IP Assessment and Plan Start: 10/28/22 16:09 Freq: Status: Active Protocol: Document 10/28/22 16:10 ES (Rec: 10/28/22 16:30 ES [id number]) PT Summary Assessment and Plan Potential Rehabilitation Potential Good Status of Condition at Evaluation Stable Summary Impairments Pain,Strength,Balance,Gait, Activity Tolerance Assessment Summary Patient is a 67 year old male who presents with increased fall risk and impaired functional mobility due to R hip pain and weakness. He has had multiple falls recently that have exacerbated his pain and weakness. He was able to demonstrate ability to ambulate short household distances with FWW and ability to ascend 1 step with BUE support. He would benefit from having another FWW so that he has one available at all times for ambulation, installation of grab bars/ rails for the steps leading down into kitchen and living area, and installation of ramp to enter the home to reduce his fall risk and increase his independence. Patient would also benefit from HH PT/OT to address strength and balance deficits and to educate on appropriate modifications to his home to increase his safety and independence, as leaving the home for OP PT would be a burden on himself and his family at this time. Frequency of Treatment Frequency Of Treatment Discharge Recommendations To Nursing Amount of Assist Needed 1 Person Assist Discharge Recommendations PT Discharge Recommendations Home with Assistance,Home Health Transportation Needs at Discharge Private Vehicle
--- NOTE | 2022-10-28 16:39 | CM.SWNOTE ---
ED MOTOR VEHICLE COMPLIANCE ANALYST/DCP Note Patient is 67 y/o male who presents to ED via EMS due to concern for increase in weakness and multiple GLFs a day. Patient endorses difficulty using stairs and uses FWW at baseline. Patient's PCP is Dr. Saxena, patient had scheduled PCP appt today but was unable to attend due to ED visit. PCP mechanical equipment test engineer rescheduled patient's PCP appt for Thursday10/31/22 at 11:00 am. Patient has Medicare and [employer] insurance. Patient has hx of Diabetes, Hypothyroid, Obstructive sleep apnea and recent GLFs. ED provider consults PT, per PT eval it is recommended that patient would benefit from HH referral. MOTOR VEHICLE COMPLIANCE ANALYST enters room to meet with patient and Lydia Physical therapist. Patient presents as A/Ox4, patient endorses he resides at home with spouse, son who is disabled and has a caregiver 4 days a week. Son's caregiver manages hoisting pile driving engineer. Patient endorses recent GLFs, increase in weakness and difficulty with stairs. It is reported that patient's bedroom is upstairs, PT recommends patient obtain multiple FWWs for each level of the house. PT recommends that patient use the back entry to the house that only has one step. Patient endorses ability to manage most ADLs but endorses struggling with mobility strength. Patient denies preference for HH agency and endorses agreement to HH referral. Per rotation calendar, MOTOR VEHICLE COMPLIANCE ANALYST calls [facility] and it is reported that services could start for patient as early as 10/30/22. MOTOR VEHICLE COMPLIANCE ANALYST to fax F2F, order, PT eval and clinicals to [facility] for HH referral for OT, PT and RN services. MOTOR VEHICLE COMPLIANCE ANALYST provides patient with list of DME resources and [facility] brochure. MOTOR VEHICLE COMPLIANCE ANALYST informs patient of upcoming rescheduled PCP appt for this Thursday as well. Plan: Patient to d/c to home with spouse upon medical clearance, patient to d/c with [facility] referral and PCP f/u on Thursday. LOAN Gooden
[2022-10-28 17:05] LABS: Appearance Urine UA SL CLOUDY; Bilirubin Urine UA NEGATIVE (NEGATIVE); Color Urine UA YELLOW; Glucose Urine UA NEGATIVE (Negative); Ketones Urine UA NEGATIVE (NEGATIVE); Leukocyte Esterase Urine UA 2+ (NEGATIVE); Nitrite Urine UA POSITIVE (Negative); Occult Blood Urine UA NEGATIVE (Negative); Protein Urine UA NEGATIVE (Negative); Urobilinogen Urine UA 0.2 E.U./dL (0.2); pH Urine UA 7.5 (4.5-8.0)
[2022-10-28 17:17] LABS: Bacteria Urine Many (>30); Culture Indicated Urine Specimen Cultured; RBC Urine None Seen (0-5/HPF); WBC Urine 1-5/HPF (0-5/HPF)
[2022-10-28] MEDS: cefTRIAXone 1,000 MG in SODIUM CHLORIDE 0.9% 100 ML 200 MG IV (17:39)
== END 2022-10-28 18:31 | disposition home or self-care (01) ==
PROVIDERS: Emergency Provider Emergency Medicine; PCP Internal Medicine
DX: N39.0 Urinary tract infection, site not specified (principal); M54.50 Low back pain, unspecified; R29.6 Repeated falls; R53.1 Weakness; Z79.899 Other long term (current) drug therapy; R07.9 Chest pain, unspecified
CPT/HCPCS: 36415; 70450; 70496; 70498; 71045; 72131; 80053; 81001; 82550; 83690; 84145; 84484; 85025; 87077; 87086; 87147; 93005; 96365; 97162; 99284; J0696; Q9967

== ENCOUNTER → 2022-11-21 15:15 | Outpatient (CLI) | payer MEDICARE, OTHER, SELFPAY ==
[2022-11-21 15:35] LABS: Appearance Urine UA CLEAR; Bilirubin Urine UA NEGATIVE (NEGATIVE); Color Urine UA YELLOW; Glucose Urine UA NEGATIVE (Negative); Ketones Urine UA NEGATIVE (NEGATIVE); Leukocyte Esterase Urine UA NEGATIVE (NEGATIVE); Nitrite Urine UA NEGATIVE (Negative); Occult Blood Urine UA NEGATIVE (Negative); Protein Urine UA NEGATIVE (Negative); pH Urine UA 5.5 (4.5-8.0)
[2022-11-21 16:30] LABS: Bacteria Urine Occasional (0-1); Mucus Urine 1+ (Negative); RBC Urine 1-5/HPF (0-5/HPF); Squamous Epithelial Cell Urine 0-1 /HPF (0-5/HPF); WBC Urine 5-10/HPF (0-5/HPF)
[2022-11-21 16:31] LABS: Urine Comments Cx order by Provider
== END ==
PROVIDERS: PCP Internal Medicine; Referring Provider Internal Medicine; Visit Provider Internal Medicine
DX: R30.0 Dysuria (principal)
CPT/HCPCS: 81001; 87086

== ENCOUNTER → 2022-11-28 09:57 | Outpatient (CLI) | payer MEDICARE, OTHER, SELFPAY ==
[2022-11-28 10:56] LABS: Alanine Aminotransferase 20 IU/L (<50); Albumin 3.4 g/dL (3.5-5.0); Albumin Globulin Ratio 1.5 (1.0-2.8); Alkaline Phosphatase 73 U/L (38-126); Aspartate Aminotransferase 19 IU/L (17-59); Bilirubin Total 0.1 mg/dL (0.2-1.3); Blood Urea Nitrogen 21 mg/dL (9-20); Calcium 8.9 mg/dL (8.4-10.2); Carbon Dioxide 26 mmol/L (22-32); Chloride 102 mmol/L (98-107); Cholesterol 137 mg/dL (140-199); Estimated Glomerular Filt Rate > 60 mL/min (>60); Globulin 2.3 g/dL (1.7-4.1); Glucose 173 mg/dL (80-110); HDL Cholesterol 32 mg/dL (40-60); HEMOLYSIS < 15 (0-50); LDL Cholesterol Calculated 47 mg/dL (<100); Potassium 4.3 mmol/L (3.4-5.1); Sodium 137 mmol/L (137-145); Total Protein 5.7 g/dL (6.3-8.2); Triglycerides 291 mg/dL (35-150)
[2022-11-28 11:11] LABS: Free T4, Direct Thyroxine 1.37 ng/dL (0.78-2.19)
[2022-11-28 11:25] LABS: Thyroid Stimulating Hormone 2.46 uIU/mL (0.47-4.68)
[2022-11-28 11:26] LABS: Prostate Specific Antigen Scrn 1.93 ng/mL (0.1-4.0)
[2022-11-29 06:19] LABS: x Labcorp Estim. Avg Glu (eAG) 163 mg/dL (.); x Labcorp Hemoglobin A1c 7.3 % (4.8-5.6)
== END ==
PROVIDERS: PCP Internal Medicine; Referring Provider Internal Medicine; Visit Provider Internal Medicine
DX: E03.9 Hypothyroidism, unspecified; Z12.5 Encounter for screening for malignant neoplasm of prostate; E66.9 Obesity, unspecified; E78.2 Mixed hyperlipidemia; I10 Essential (primary) hypertension; E11.69 Type 2 diabetes mellitus with other specified complication
CPT/HCPCS: 36415; 80053; 80061; 83036; 84439; 84443; G0103